=== PATIENT | male | born 1945 | race Caucasian/White ===

== ENCOUNTER 2019-05-05 01:22 | Inpatient (IN) | payer MEDICARE, MEDICAID ==
[2019-05-05] MEDS ORDERED: Sodium Chloride 0.9% 1,000 ML IV ONE ×2 (01:54→03:30)
[2019-05-05] MEDS ORDERED: cefTRIAXone 1 GM Vial IVPUSH ONE (02:10)
[2019-05-05 03:06] LABS: CHLORIDE,CL 106 mmol/L (98-107); SODIUM,NA 142 mmol/L (136-145)
[2019-05-05 03:07] LABS: ANION GAP 14.2 mmol/L (10-20)
[2019-05-05] MEDS ORDERED: Diltiazem 50 MG/10 ML SDV IVPUSH ONE (05:12)
--- NOTE | 2019-05-05 07:28 | EDM.PDOC ---
ED HPI GENERAL MEDICAL PROBLEM - General Chief Complaint: Fever Stated Complaint: Fever, recent diagnosis of UTI Time Seen by Provider: 05/05/19 01:54 Source of Information: Reports: Patient, Long-Term Records History Limitations: Reports: Other (Dementia) - History of Present Illness INITIAL COMMENTS - FREE TEXT/NARRATIVE: [place] with fever of 103.1 Was started on Bactrim DS today for UTI and has had one dose No N/V/D No cough No SOB Pt noted to be tachycardic upon arrival in ER with rate in 160's Pt has hx/o Afib and HTN per [facility] notes Pt with dementia Onset: Gradual Location: Reports: Generalized Associated Symptoms: Reports: Fever/Chills Treatments ANALYTICS DEVELOPER: Reports: Acetaminophen - Related Data Allergies Allergy/AdvReac Type Severity Reaction Status Date / Time No Known Drug Allergies Allergy Other Verified 05/05/19 03:29 Home Meds: Home Meds Divalproex Sodium [Depakote ER] 1,000 mg PO BEDTIME 09/10/14 [History] Furosemide [Lasix] 40 mg PO DAILY PRN 09/10/14 [History] Hydrocodone/Acetaminophen [[place] 5-325] 1 tab PO TID 09/10/14 [History] Levothyroxine 75 mcg PO ACBRK 09/10/14 [History] Memantine HCl [Namenda Xr] 14 mg PO DAILY 09/10/14 [History] OLANZapine [ZyPREXA] 5 mg PO DAILY 09/10/14 [History] Nitroglycerin [Nitrostat] 0.4 mg SL Q5M PRN 10/04/14 [History] Omeprazole [Prilosec] 20 mg PO DAILY 10/04/14 [History] Lisinopril 5 mg PO DAILY 10/18/17 [History] Cranberry Fruit Concentrate [Cranberry] 450 mg PO TID 10/19/17 [History] Cyanocobalamin (Vitamin B-12) [B-12] 1,000 mcg PO DAILY 10/19/17 [History] Nystatin 1 applic TOP ASDIRECTED PRN 10/19/17 [History] Sennosides/Docusate Sodium [Senna Plus Tablet] 2 tab PO DAILY 12/01/18 [History] Past Medical History HEENT History: Reports: Impaired Vision Other HEENT History: wears glasses, upper dentures Cardiovascular History: Reports: Hypertension, OK Other Cardiovascular History: MITRAL VALVE DISORDER. NSTEMI. PAROXYSMAL A- FIB. ANKLE EDEMA. LVH-LEFT VENTRICULAR HYPERTROPHY Respiratory History: Reports: COPD Other Respiratory History: OBSTRUCTIVE CHRONIC BRONCHITIS EXACERBATION Gastrointestinal History: Reports: Chronic Constipation, Chronic Diarrhea, GERD , GI Bleed Genitourinary History: Reports: Neurogenic Bladder Other Genitourinary History: neuromuscular dysfunction of the bladder Musculoskeletal History: Reports: Back Pain, Chronic Other Musculoskeletal History: MALAISE, GENERALIZED PAIN. LIPOMATOSIS, HAMMERTOE, FLAT FOOT, CORN OF FOOT, Neurological History: Reports: Alzheimers Disease, Headaches, Chronic Other Neuro History: DEMENTIA, MILD INTELLECTUAL DISABILITY Psychiatric History: Reports: Bipolar, Schizophrenia Other Psychiatric History: INSOMNIA. ALCOHOL DEPENDENCE IN REMISSION Endocrine/Metabolic History: Reports: Diabetes, Type II, Hypothyroidism, Obesity /BMI 30+ Other Endocrine/Metabolic History: IMPAIRED FASTING GLUCOSE Hematologic History: Reports: Anemia, Iron Deficiency Other Hematologic History: MACROCYTIC ANEMIA Other Immunologic History: H/O SEPSIS Oncologic (Cancer) History: Reports: Bladder Other Dermatologic History: DERMATITIS - Past Surgical History GI Surgical History: Reports: Appendectomy Social & Family History - Family History Family Medical History: Noncontributory - Tobacco Use Smoking Status *Q: Unknown Ever Smoked - Caffeine Use Caffeine Use: Reports: None ED ROS GENERAL - Review of Systems Review Of Systems: See Below Constitutional: Reports: Fever HEENT: Reports: No Symptoms Respiratory: Reports: No Symptoms Cardiovascular: Reports: No Symptoms GI/Abdominal: Reports: No Symptoms : Reports: Incontinence Skin: Reports: No Symptoms ED EXAM, SEPSIS - Physical Exam Exam: See Below Exam Limited By: Other (Dementia) General Appearance: No Apparent Distress Throat/Mouth: Normal Oropharynx Neck: Supple Respiratory/Chest: Lungs Clear Cardiovascular: Regular Rate, Rhythm GI/Abdominal Exam: Soft, Non-Tender Extremities: Pedal Edema Skin: Warm, Dry Course - Vital Signs Last Recorded V/S: Last Vital Signs Temp 36.6 C 05/05/19 05:40 Pulse 152 H 05/05/19 03:40 Resp 20 05/05/19 06:39 BP 121/55 L 05/05/19 06:39 Pulse Ox 95 05/05/19 06:39 - Orders/Labs/Meds Orders: Active Orders 24 hr Category Date Time Status EKG 12 Lead [EKG Documentation Completion] [RC] ROUTINE Care 05/05/19 03:00 Active Chest 1V Frontal [CR] Stat Exams 05/05/19 07:18 Ordered CULTURE BLOOD [BC] Stat Lab 05/05/19 02:35 Results CULTURE BLOOD [BC] Stat Lab 05/05/19 02:41 Received CULTURE URINE [RM] Stat Lab 05/05/19 02:50 Received Blood Culture x2 Reflex Set [OM.PC] Stat Oth 05/05/19 01:55 Ordered Labs: Laboratory Tests 05/05/19 05/05/19 05/05/19 Range/Units 02:35 02:35 02:41 WBC 27.5 H* (4.0-10.0) x10^3/uL RBC 3.89 L (4.5-6.0) x10^6/uL Hgb 13.3 L (14.0-18.0) g/dL Hct 39.1 L (40.0-52.0) % MCV 100.5 H D (78.0-93.0) fL MCH 34.2 H (26.0-32.0) pg MCHC 34.0 (32.0-36.0) g/dL RDW Coeff of January 12.3 (10.0-15.0) % Plt Count 154 (130-400) x10^3/uL Add Manual Diff Yes Neutrophils % (Manual) 78 (50-80) % Band Neutrophils % 6 (0-6) % Lymphocytes % (Manual) 3 L (25-50) % Monocytes % (Manual) 11 (2-11) % Metamyelocytes % 2 H (0) % Vacuolated Monocytes Rare Platelet Estimate Adequate Macrocytosis 1+ slight H Stomatocytes 2+ moderate H Rouleaux 1+ slight H Sodium 142 (136-145) mmol/L Potassium 4.2 (3.5-5.1) mmol/L Chloride 106 (98-107) mmol/L Carbon Dioxide 26 (21-32) mmol/L Anion Gap 14.2 (10-20) mmol/L BUN 39 H (7-18) mg/dL Creatinine 2.5 H (0.70-1.30) mg/dL Est Cr Clr Drug Dosing TNP Estimated GFR (MDRD) 25 Glucose 115 H (74-106) mg/dL Lactic Acid 1.2 (0.4-2.0) mmol/L Calcium 8.6 (8.5-10.1) mg/dL Corrected Calcium 9.64 (8.5-10.1) mg/dL Total Bilirubin 0.5 (0.2-1.0) mg/dL AST 217 H (15-37) U/L ALT 100 H (16-63) U/L Alkaline Phosphatase 40 L (46-116) U/L Total Protein 6.5 (6.4-8.2) g/dL Albumin 2.7 L (3.4-5.0) g/dL Globulin 3.8 Albumin/Globulin Ratio 0.71 Urine Color (YELLOW) Urine Appearance (CLEAR) Urine pH (5.0-8.0) Ur Specific [place] Urine Protein (NEGATIVE) mg/dL Urine Glucose (UA) (NEGATIVE) mg/dL Urine Ketones (NEGATIVE) mg/dL Urine Occult Blood (NEGATIVE) Urine Nitrite (NEGATIVE) Urine Bilirubin (NEGATIVE) Urine Urobilinogen (0.2) EU/dL Ur Leukocyte Esterase (NEGATIVE) Urine RBC (NOT SEEN) /HPF Urine WBC (NOT SEEN) /HPF Ur Squamous Epith Cells (NEGATIVE) /HPF Urine Bacteria (NEGATIVE) /HPF Urine Mucus (NEGATIVE) /LPF 05/05/19 Range/Units 02:50 WBC (4.0-10.0) x10^3/uL RBC (4.5-6.0) x10^6/uL Hgb (14.0-18.0) g/dL Hct (40.0-52.0) % MCV (78.0-93.0) fL MCH (26.0-32.0) pg MCHC (32.0-36.0) g/dL RDW Coeff of January (10.0-15.0) % Plt Count (130-400) x10^3/uL Add Manual Diff Neutrophils % (Manual) (50-80) % Band Neutrophils % (0-6) % Lymphocytes % (Manual) (25-50) % Monocytes % (Manual) (2-11) % Metamyelocytes % (0) % Vacuolated Monocytes Platelet Estimate Macrocytosis Stomatocytes Rouleaux Sodium (136-145) mmol/L Potassium (3.5-5.1) mmol/L Chloride (98-107) mmol/L Carbon Dioxide (21-32) mmol/L Anion Gap (10-20) mmol/L BUN (7-18) mg/dL Creatinine (0.70-1.30) mg/dL Est Cr Clr Drug Dosing Estimated GFR (MDRD) Glucose (74-106) mg/dL Lactic Acid (0.4-2.0) mmol/L Calcium (8.5-10.1) mg/dL Corrected Calcium (8.5-10.1) mg/dL Total Bilirubin (0.2-1.0) mg/dL AST (15-37) U/L ALT (16-63) U/L Alkaline Phosphatase (46-116) U/L Total Protein (6.4-8.2) g/dL Albumin (3.4-5.0) g/dL Globulin Albumin/Globulin Ratio Urine Color Yellow (YELLOW) Urine Appearance Clear (CLEAR) Urine pH 6.0 (5.0-8.0) Ur Specific [place] 1.010 Urine Protein 30 H (NEGATIVE) mg/dL Urine Glucose (UA) Negative (NEGATIVE) mg/dL Urine Ketones Trace H (NEGATIVE) mg/dL Urine Occult Blood Moderate H (NEGATIVE) Urine Nitrite Negative (NEGATIVE) Urine Bilirubin Negative (NEGATIVE) Urine Urobilinogen 0.2 (0.2) EU/dL Ur Leukocyte Esterase Trace H (NEGATIVE) Urine RBC 5-10 H (NOT SEEN) /HPF Urine WBC 5-10 H (NOT SEEN) /HPF Ur Squamous Epith Cells Not seen (NEGATIVE) /HPF Urine Bacteria Rare (NEGATIVE) /HPF Urine Mucus Not seen (NEGATIVE) /LPF Meds: Medications Discontinued Medications Generic Name Dose Route Start Last Admin Trade Name Araceli PRN Reason Stop Dose Admin Ceftriaxone Sodium 1 gm 05/05/19 02:10 05/05/19 02:40 Rocephin IVPUSH 05/05/19 02:11 1 gm STAT ONE Administration Diltiazem HCl 25 mg 05/05/19 05:12 05/05/19 05:20 Cardizem IVPUSH 05/05/19 05:13 25 mg ONETIME ONE Administration Sodium Chloride 1,000 mls @ 1,000 mls/hr 05/05/19 01:54 05/05/19 02:06 Normal Saline IV 05/05/19 02:53 1,000 mls/hr ONETIME ONE Administration Sodium Chloride 1,000 mls @ 999 mls/hr 05/05/19 03:30 05/05/19 03:30 Normal Saline IV 05/05/19 04:30 999 mls/hr ONETIME ONE Administration - Re-Assessments/Exams Free Text/Narrative Re-Assessment/Exam: 05/05/19 07:29 Pt given Tylenol prior to transfer Fever now decreased to 98.8 Oxygen sats 99 % on RA HR remained in the 150's and pt given IVF X 2 L Pt remains tachycardic EKG shows Afib/Aflutter Pt given Cardizem 25 mg IV and HR decreased to 105 Pt BP 105/62 at that time HR has now increased back to 150's BP 121/51 Pt remains in Afib D/W Dr Bonner Will admit Departure - Departure Time of Disposition: 07:45 Disposition: Admitted As Inpatient 64 Clinical Impression: UTI (urinary tract infection) Qualifiers: Urinary tract infection type: site unspecified Hematuria presence: without hematuria Qualified Code(s): N39.0 - Urinary tract infection, site not specified - Discharge Information *PRESCRIPTION DRUG MONITORING PROGRAM REVIEWED*: Not Applicable *COPY OF PRESCRIPTION DRUG MONITORING REPORT IN PATIENT SCOTT: Not Applicable Referrals: PCP,Unobtain [Primary Care Provider] - - My Orders Last 24 Hours: My Active Orders 05/05/19 01:55 Blood Culture x2 Reflex Set [OM.PC] Stat 05/05/19 02:35 CULTURE BLOOD [BC] Stat 05/05/19 02:41 CULTURE BLOOD [BC] Stat 05/05/19 02:50 CULTURE URINE [RM] Stat 05/05/19 03:00 EKG 12 Lead [EKG Documentation Completion] [RC] ROUTINE 05/05/19 07:18 Chest 1V Frontal [CR] Stat - Assessment/Plan Last 24 Hours: My Active Orders 05/05/19 01:55 Blood Culture x2 Reflex Set [OM.PC] Stat 05/05/19 02:35 CULTURE BLOOD [BC] Stat 05/05/19 02:41 CULTURE BLOOD [BC] Stat 05/05/19 02:50 CULTURE URINE [RM] Stat 05/05/19 03:00 EKG 12 Lead [EKG Documentation Completion] [RC] ROUTINE 05/05/19 07:18 Chest 1V Frontal [CR] Stat
--- NOTE | 2019-05-05 08:25 | CR ---
[id number] RAD/RAD Chest PA or AP 1V EXAM: FRONTAL CHEST INDICATION: Fever. COMPARISON: October 18, 2017. DISCUSSION: Evaluation mildly limited by body habitus and hypoinflation. No infiltrates are identified. Heart is at upper limits normal for size without evidence of congestive heart failure. IMPRESSION: 1. No acute findings. Pravin Kimble MD 05/05/19 0824 Thank you for allowing us to participate in the care of your patient.
[2019-05-05] MEDS ORDERED: Nitroglycerin 0.4 MG Tab.SL SL PRN (08:38)
[2019-05-05] MEDS ORDERED: Bisacodyl 10 MG Supp RECTAL PRN (08:38)
[2019-05-05] MEDS ORDERED: Loperamide 2 MG Cap PO PRN (08:38)
[2019-05-05] MEDS ORDERED: Sodium Chloride 0.9% 500 ML IV ONE (08:50)
[2019-05-05] MEDS ORDERED: Lisinopril 5 MG Tab PO SCH (09:30)
[2019-05-05] MEDS: Sodium Chloride 0.9% 1,000 ML IV SCH ×3 (09:52→18:57)
[2019-05-05] MEDS: Cyanocobalamin (Vitamin B12) 1,000 MCG Tab PO SCH (09:53)
[2019-05-05] MEDS: Levothyroxine 75 MCG Tab PO SCH (09:53)
[2019-05-05] MEDS: OLANZapine 5 MG Tab PO SCH (09:53)
[2019-05-05] MEDS: Memantine 10 MG Tab PO SCH ×2 (09:53→19:49)
[2019-05-05] MEDS: Fluconazole 100 MG Tab PO SCH (09:53)
[2019-05-05] MEDS: Magnesium Oxide 400 MG Tab PO SCH (09:53)
[2019-05-05] MEDS: Metoprolol Tartrate 5 MG/5 ML SDV IVPUSH SCH ×3 (09:55→15:51)
[2019-05-05] MEDS: Cranberry 500 MG Cap PO SCH ×3 (12:16→19:49)
[2019-05-05] MEDS: Acetaminophen/HYDROcodone 325-5 MG Tab PO SCH ×3 (12:16→19:49)
[2019-05-05] MEDS: Acetaminophen 325 MG Tab PO PRN ×2 (12:16→15:58)
--- NOTE | 2019-05-05 12:55 | PCM.SN ---
- Free Text/Narrative Note: pt status is becoming more somnolent , his pulse has gone up to 160's and BP upper 90's systolic. He is DNR/DNI so won't make transfer call, but will consult Dr Lorie Mehta, since pt has already recieved fluid boluses x 2 as well as IV cardizem and IV lopressor x 2 dose. His renal function is Cr 2.5 and he had urospesis. configuration specialist will be updated. He did have A fib w RVR in 2013. He may from current health issues. A BMP is pending at this time.
--- NOTE | 2019-05-05 13:00 | PCM.SN ---
- Free Text/Narrative Note: Spoke with guardian and she agreed with keeping him hiere. Ok with consult with Dr Lorie Mehta, She was informed that he may from his current illness.
[2019-05-05] MEDS ORDERED: Adenosine 6 MG/2 ML SDV IVPUSH ONE (13:03)
--- NOTE | 2019-05-05 13:32 | HP ---
CHIEF COMPLAINT: Febrile with rapid pulse. HISTORY OF PRESENT ILLNESS: The patient is a 73-year-old resident of [facility], patient of Dr. Atkinson, who had been treated for an abnormal urine by phone call from the clinic yesterday with Bactrim DS. He received 1 dose, and during the night, he had a fever that went up to 103 as well as a rapid pulse, so he was brought over to the emergency room at 2 a.m. The patient was seen by Jaden Zamora. The patient had noted a rapid pulse. He was given first some IV fluids for resuscitation. However, he was given some Cardizem to also help, it had shown sinus tachycardia, not irregular. The patient has dementia, is not able to contribute to his story to note it is noted at the [facility]. His code level status is code level 4. The patient himself denies coughing and he has some swollen red lumps on his forearms, which I am not certain if they are longstanding, old versus new. MEDICATIONS: His medications that he is currently on are Bactrim DS 1 pill twice a day, just started; bisacodyl suppository 5 mg by mouth p.r.n. constipation; bisacodyl rectal suppository 10 mg as needed; cranberry capsule 425 mg 1 pill 3 times a day; Depakote extended release 500 mg get 3 pills one time a day; hydrocodone/acetaminophen 5/325 one pill 3 times daily; Imodium AD 2 mg p.r.n. diarrhea, maximum of 4 capsules in 24 hours; levothyroxine 75 mcg 1 pill daily; lisinopril 5 mg 1 pill daily; Namenda extended release 28 mg 1 pill daily; Nitrostat 0.4 sublingual q.5 minutes x3 p.r.n. chest pain; nystatin powder 1000 units/g apply to groin b.i.d.; nystatin powder apply to groin p.r.n. rash; Senna Plus 2 pills 2 times a day for constipation; vitamin B12 1000 mcg 1 pill daily; Zantac 150 mg 1 pill daily; Zyprexa 10 mg 1 pill by mouth daily. ALLERGIES: None known. PAST MEDICAL HISTORY: The patient has bipolar disorder, manic phases, bladder cancer, chronic headaches, constipation, COPD, dementia, diarrhea, flat foot, hammertoe, hypertension, hypothyroidism, impaired fasting glucose, lower GI bleeding, left ventricular hypertrophy, macrocytic anemia with intellectual disability, morbid obesity, neurogenic bladder, non-STEMI in the past, paroxysmal atrial fib, reflex esophagitis. The patient has had cardiac workup in 2013 with a Persantine stress test that came back negative. He has had chronic back pain. He had a colonoscopy on 12/02/2018, which was negative. PAST SURGICAL HISTORY: He has had an appendectomy. FAMILY MEDICAL HISTORY: His brother and sister had normal health. SOCIAL HISTORY: The patient is single. He has a guardian by the name of Edda Henson, whose number is [phone]. The patient used to smoke 2 packs of cigarettes per day. He quit 12 years ago. Alcohol use none. The patient has been at the [facility] for several years. He goes by [employer]. 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 He has been in the [facility] since 2007 as well as in the [facility]. REVIEW OF SYSTEMS: The patient is not able to contribute any comments due to his dementia, but he denies coughing. PHYSICAL EXAMINATION: Vital Signs: When he initially presented to the emergency room were temperature is 38.2, pulse 158, blood pressure is 130/64, respiratory rate is 18, saturations are 93%. By the time the patient was admitted to the floor, his temperature was 36.9, pulse was 164, blood pressure is 123/60, respiratory rate is 20, saturations are 96%. HEENT: The patient's mucous membranes are extremely dry with some thrush present on the top of his mouth. Pupils equal and reactive to light. Skin: Somewhat dry, tented on his left forearm. He does have a firm mass that is about 3 cm in size, which does have some erythema associated with it. He may have a lipoma on his right forearm. Heart: Tachycardic. Lungs: Have diminished breath sounds on bases. I do not appreciate any crackles or wheezes. Abdomen: Obese, soft, nontender. No hepatosplenomegaly. Extremities: Lower extremities have trace edema. Neurologic: The patient moves all extremities. He is developmentally delayed. Psychiatric: He has a history of bipolar disorder. LABORATORY DATA: Came back showing his white blood cell count of 27.5, hemoglobin 13.3, platelets 154 with 78 segs, 3 lymphocytes, 2 metamyelocytes. Sodium 142, potassium 4.2, creatinine is 2.5, BUN 39, glucose 115, GFR is 25, lactic acid 1.2, calcium 8.6. Total bilirubin 0.5, AST 217, ALT 100, alkaline phosphatase 40, albumin 2.7. Urinalysis that was obtained showed specific gravity of 1.010, protein 30, trace ketones, moderate blood, trace leukocyte esterase, 5 to 10 red blood cells, 5 to 10 white blood cells, rare bacteria. CXR normal EKG sinus tachycardia. IMPRESSION: 1. Systemic inflammatory response syndrome most likely related to urinary tract infection. 2. Urinary tract infection. 3. Tachycardia, unclear etiology. 4. Dehydration, moderate. 5. Acute kidney injury. 6. Elevation of liver function tests. 7. Thrush in his mouth. 8. Bipolar disorder. 9. Chronic dementia with mental disability. 10.History of bladder cancer. PLAN: The patient will be admitted to acute care. I did visit with Edda Easley, his power of file clerk, at approximately 8:10, and she would like to have infections treated, IV fluids given. She does not want him to be resuscitated such as CPR or placed on the ventilator. The patient had been given Rocephin 1 g IV in the emergency room. We will continue Rocephin for right now and we will also continue with rate controlling medications of Cardizem. We will need to reassess his electrolytes to note his baseline creatinine noted from last year had been about 1.5, so there is definitely a change that is going on. Dr. Atkinson to assume his care once he is available. I will continue to care for the patient today and tomorrow. Due to severity of illlness, patient could from current health issues. His code level status is upgraded to DNI/DNR. We will treat infections and give IV fluids in general room. GM05/05/2019 08:31:46 MODL: 05/05/2019 13:27:10 /[id number] PILY
[2019-05-05 13:54] LABS: ANION GAP 15.6 mmol/L (10-20)
[2019-05-05] MEDS ORDERED: Metoprolol Tartrate 5 MG/5 ML SDV IVPUSH PRN (17:07)
[2019-05-05] MEDS ORDERED: Digoxin 500 MCG/2 ML Amp IVPUSH ONE ×2 (17:30→21:20)
--- NOTE | 2019-05-05 17:34 | PCM.SN ---
- Free Text/Narrative Note: EKG reviewed and patient in a. fib with RVR did respond minimally to IV lopressor 2.5 so plan 5 mg Q 4 hrs prn for HR over 140 and BP above 100 if BP under 100 than 1 dose of IV dig ordered will reasses in AM but conservative care recommended based on patients overall condition and underlying dementia. Continue telemetry and fluids and other treatments for sepsis. Full consult note will be dictated. I would hold off on any significant anticoagulation at this point other than DVT prophylaxis.
[2019-05-05] MEDS ORDERED: Digoxin 500 MCG/2 ML Amp IVPUSH PRN (17:51)
[2019-05-05] MEDS: Miconazole 2% Top Powder 45 GM Container TOP SCH (19:44)
[2019-05-05] MEDS: Divalproex Sodium 500 MG Tab.ER PO SCH (19:44)
[2019-05-05] MEDS: Heparin Sodium 5,000 Units/ML Vial SUBCUT SCH (19:45)
[2019-05-05] MEDS: cefTRIAXone 1 GM Vial IVPUSH SCH (19:47)
--- NOTE | 2019-05-05 23:15 | PCM.HP ---
H&P History of Present Illness - General Date of Service: 05/05/19 Admit Problem/Dx: Admission Diagnosis/Problem Admission Diagnosis/Problem Fever Source of Information: EMS, Old Records, Provider, RN - History of Present Illness Initial Comments - Free Text/Narative: 73 yo dx with UTI yesterday got one dose of bactrim in the ER overnight due to fever and tachycardia HR 160 in A. fib responded to 25 mg of Cardizem but then was hypotensive. Lactic acid normal but then increased I was consulted due to tachycardia. EKG was read as EKG so 5 mg of Adenosine given with no result but 2.5 of Lopressor given x 2 and last dose helped heart rate to improve to 120- 140. Patient is now lethargic not answering questions due to underlying dementia and bipolar is not a candidate for aggressive care per attending discussion with his guardian. He did get his lisinopril this AM. Clt still pending from the clinic he is on IV rocephin. Fever is better. He is only requiring 2 L of oxygen now but sats in mid 90s no hx of CHF has normal EF in 2013 65 % when he last had a. fib in 2013. He is not on anticoagulation. Pet scan at that time read as essentially normal he does have mild to moderate MR. He got over 2L of fluid and now is getting a sewell placed with good return of urine so far. Cr up to over 2 and baseline was around 1 last fall. - Related Data Allergies/Adverse Reactions: Allergies Allergy/AdvReac Type Severity Reaction Status Date / Time No Known Drug Allergies Allergy Other Verified 05/05/19 03:29 Home Medications: Home Meds Divalproex Sodium [Depakote ER] 1,500 mg PO BEDTIME 09/10/14 [History] Hydrocodone/Acetaminophen [[place] 5-325] 1 tab PO TID 09/10/14 [History] Levothyroxine 75 mcg PO ACBRK 09/10/14 [History] Memantine HCl [Namenda Xr] 28 mg PO DAILY 09/10/14 [History] OLANZapine [ZyPREXA] 10 mg PO DAILY 09/10/14 [History] Nitroglycerin [Nitrostat] 0.4 mg SL Q5M PRN 10/04/14 [History] Lisinopril 5 mg PO DAILY 10/18/17 [History] Cranberry Fruit Concentrate [Cranberry] 425 mg PO TID 10/19/17 [History] Cyanocobalamin (Vitamin B-12) [B-12] 1,000 mcg PO DAILY 10/19/17 [History] Nystatin 1 applic TOP BID 10/19/17 [History] Sennosides/Docusate Sodium [Senna Plus Tablet] 2 tab PO DAILY 12/01/18 [History] Bisacodyl 5 mg PO DAILY PRN 05/05/19 [History] Bisacodyl 10 mg RC DAILY PRN 05/05/19 [History] Loperamide HCl [Imodium A-D] 2 mg PO ASDIRECTED PRN 05/05/19 [History] Sulfamethoxazole/Trimethoprim [Bactrim Ds Tablet] 1 tab PO BID 05/05/19 [History ] Past Medical History HEENT History: Reports: Impaired Vision Other HEENT History: wears glasses, upper dentures Cardiovascular History: Reports: Hypertension, [place] Other Cardiovascular History: MITRAL VALVE DISORDER. NSTEMI. PAROXYSMAL A- FIB. ANKLE EDEMA. LVH-LEFT VENTRICULAR HYPERTROPHY Respiratory History: Reports: COPD Other Respiratory History: OBSTRUCTIVE CHRONIC BRONCHITIS EXACERBATION Gastrointestinal History: Reports: Chronic Constipation, Chronic Diarrhea, GERD , GI Bleed Genitourinary History: Reports: Neurogenic Bladder Other Genitourinary History: neuromuscular dysfunction of the bladder Musculoskeletal History: Reports: Back Pain, Chronic Other Musculoskeletal History: MALAISE, GENERALIZED PAIN. LIPOMATOSIS, [place], FLAT FOOT, CORN OF FOOT, Neurological History: Reports: Alzheimers Disease, Headaches, Chronic Other Neuro History: DEMENTIA, MILD INTELLECTUAL DISABILITY Psychiatric History: Reports: Bipolar, Schizophrenia Other Psychiatric History: INSOMNIA. ALCOHOL DEPENDENCE IN REMISSION Endocrine/Metabolic History: Reports: Diabetes, Type II, Hypothyroidism, Obesity /BMI 30+ Other Endocrine/Metabolic History: IMPAIRED FASTING GLUCOSE Hematologic History: Reports: Anemia, Iron Deficiency Other Hematologic History: MACROCYTIC ANEMIA Other Immunologic History: H/O SEPSIS Oncologic (Cancer) History: Reports: Bladder Other Dermatologic History: DERMATITIS - Past Surgical History GI Surgical History: Reports: Appendectomy Social & Family History - Family History Family Medical History: Noncontributory - Tobacco Use Smoking Status *Q: Never Smoker Second Hand Smoke Exposure: No - Caffeine Use Caffeine Use: Reports: Coffee - Recreational Drug Use Recreational Drug Use: No H&P Review of Systems - Review of Systems: Review Of Systems: Unable To Obtain Exam - Exam Exam: See Below - Vital Signs Vital Signs: Last Vital Signs Temp 99.9 F 05/05/19 22:00 Pulse 137 H 05/05/19 22:00 Resp 18 05/05/19 22:00 BP 98/68 05/05/19 22:00 Pulse Ox 95 05/05/19 22:00 Weight: 109.769 kg - Exam Quality Assessment: Supplemental Oxygen General: Lethargic (only able to answer "ya" when I used painful stimuli ) HEENT: Conjunctiva Clear Neck: Supple, Trachea Midline. No: JVD Lungs: Clear to Auscultation, Normal Respiratory Effort Cardiovascular: Irregular Rhythm, Tachycardia GI/Abdominal Exam: Normal Bowel Sounds, Soft, Non-Tender, No Organomegaly Extremities: Normal Inspection, No Pedal Edema - Patient Data Lab Results Last 24 hrs: Laboratory Results - last 24 hr 05/05/19 05/05/19 05/05/19 Range/Units 02:35 02:35 02:41 WBC 27.5 H* (4.0-10.0) x10^3/uL RBC 3.89 L (4.5-6.0) x10^6/uL Hgb 13.3 L (14.0-18.0) g/dL Hct 39.1 L (40.0-52.0) % MCV 100.5 H D (78.0-93.0) fL MCH 34.2 H (26.0-32.0) pg MCHC 34.0 (32.0-36.0) g/dL RDW Coeff of January 12.3 (10.0-15.0) % Plt Count 154 (130-400) x10^3/uL Add Manual Diff Yes Neutrophils % (Manual) 78 (50-80) % Band Neutrophils % 6 (0-6) % Lymphocytes % (Manual) 3 L (25-50) % Monocytes % (Manual) 11 (2-11) % Metamyelocytes % 2 H (0) % Vacuolated Monocytes Rare Platelet Estimate Adequate Macrocytosis 1+ slight H Stomatocytes 2+ moderate H Rouleaux 1+ slight H Sodium 142 (136-145) mmol/L Potassium 4.2 (3.5-5.1) mmol/L Chloride 106 (98-107) mmol/L Carbon Dioxide 26 (21-32) mmol/L Anion Gap 14.2 (10-20) mmol/L BUN 39 H (7-18) mg/dL Creatinine 2.5 H (0.70-1.30) mg/dL Est Cr Clr Drug Dosing TNP Estimated GFR (MDRD) 25 Glucose 115 H (74-106) mg/dL Lactic Acid 1.2 (0.4-2.0) mmol/L Calcium 8.6 (8.5-10.1) mg/dL Corrected Calcium 9.64 (8.5-10.1) mg/dL Magnesium (1.8-2.4) mg/dL Total Bilirubin 0.5 (0.2-1.0) mg/dL AST 217 H (15-37) U/L ALT 100 H (16-63) U/L Alkaline Phosphatase 40 L (46-116) U/L Troponin I (<=0.056) ng/mL C-Reactive Protein (<=0.9) mg/dL NT-Pro-B Natriuret Pep (<=450) pg/mL Total Protein 6.5 (6.4-8.2) g/dL Albumin 2.7 L (3.4-5.0) g/dL Globulin 3.8 Albumin/Globulin Ratio 0.71 Urine Color (YELLOW) Urine Appearance (CLEAR) Urine pH (5.0-8.0) Ur Specific [place] Urine Protein (NEGATIVE) mg/dL Urine Glucose (UA) (NEGATIVE) mg/dL Urine Ketones (NEGATIVE) mg/dL Urine Occult Blood (NEGATIVE) Urine Nitrite (NEGATIVE) Urine Bilirubin (NEGATIVE) Urine Urobilinogen (0.2) EU/dL Ur Leukocyte Esterase (NEGATIVE) Urine RBC (NOT SEEN) /HPF Urine WBC (NOT SEEN) /HPF Ur Squamous Epith Cells (NEGATIVE) /HPF Urine Bacteria (NEGATIVE) /HPF Urine Mucus (NEGATIVE) /LPF 05/05/19 05/05/19 05/05/19 Range/Units 02:50 09:00 09:00 WBC (4.0-10.0) x10^3/uL RBC (4.5-6.0) x10^6/uL Hgb (14.0-18.0) g/dL Hct (40.0-52.0) % MCV (78.0-93.0) fL MCH (26.0-32.0) pg MCHC (32.0-36.0) g/dL RDW Coeff of January (10.0-15.0) % Plt Count (130-400) x10^3/uL Add Manual Diff Neutrophils % (Manual) (50-80) % Band Neutrophils % (0-6) % Lymphocytes % (Manual) (25-50) % Monocytes % (Manual) (2-11) % Metamyelocytes % (0) % Vacuolated Monocytes Platelet Estimate Macrocytosis Stomatocytes Rouleaux Sodium (136-145) mmol/L Potassium (3.5-5.1) mmol/L Chloride (98-107) mmol/L Carbon Dioxide (21-32) mmol/L Anion Gap (10-20) mmol/L BUN (7-18) mg/dL Creatinine (0.70-1.30) mg/dL Est Cr Clr Drug Dosing Estimated GFR (MDRD) Glucose (74-106) mg/dL Lactic Acid 2.5 H* (0.4-2.0) mmol/L Calcium (8.5-10.1) mg/dL Corrected Calcium (8.5-10.1) mg/dL Magnesium 1.7 L (1.8-2.4) mg/dL Total Bilirubin (0.2-1.0) mg/dL AST (15-37) U/L ALT (16-63) U/L Alkaline Phosphatase (46-116) U/L Troponin I (<=0.056) ng/mL C-Reactive Protein (<=0.9) mg/dL NT-Pro-B Natriuret Pep (<=450) pg/mL Total Protein (6.4-8.2) g/dL Albumin (3.4-5.0) g/dL Globulin Albumin/Globulin Ratio Urine Color Yellow (YELLOW) Urine Appearance Clear (CLEAR) Urine pH 6.0 (5.0-8.0) Ur Specific [place] 1.010 Urine Protein 30 H (NEGATIVE) mg/dL Urine Glucose (UA) Negative (NEGATIVE) mg/dL Urine Ketones Trace H (NEGATIVE) mg/dL Urine Occult Blood Moderate H (NEGATIVE) Urine Nitrite Negative (NEGATIVE) Urine Bilirubin Negative (NEGATIVE) Urine Urobilinogen 0.2 (0.2) EU/dL Ur Leukocyte Esterase Trace H (NEGATIVE) Urine RBC 5-10 H (NOT SEEN) /HPF Urine WBC 5-10 H (NOT SEEN) /HPF Ur Squamous Epith Cells Not seen (NEGATIVE) /HPF Urine Bacteria Rare (NEGATIVE) /HPF Urine Mucus Not seen (NEGATIVE) /LPF 05/05/19 05/05/19 Range/Units 09:00 13:10 WBC (4.0-10.0) x10^3/uL RBC (4.5-6.0) x10^6/uL Hgb (14.0-18.0) g/dL Hct (40.0-52.0) % MCV (78.0-93.0) fL MCH (26.0-32.0) pg MCHC (32.0-36.0) g/dL RDW Coeff of January (10.0-15.0) % Plt Count (130-400) x10^3/uL Add Manual Diff Neutrophils % (Manual) (50-80) % Band Neutrophils % (0-6) % Lymphocytes % (Manual) (25-50) % Monocytes % (Manual) (2-11) % Metamyelocytes % (0) % Vacuolated Monocytes Platelet Estimate Macrocytosis Stomatocytes Rouleaux Sodium 144 (136-145) mmol/L Potassium 4.6 (3.5-5.1) mmol/L Chloride 109 H (98-107) mmol/L Carbon Dioxide 24 (21-32) mmol/L Anion Gap 15.6 (10-20) mmol/L BUN 36 H (7-18) mg/dL Creatinine 2.6 H (0.70-1.30) mg/dL Est Cr Clr Drug Dosing 26.15 Estimated GFR (MDRD) 24 Glucose 111 H (74-106) mg/dL Lactic Acid (0.4-2.0) mmol/L Calcium 8.2 L (8.5-10.1) mg/dL Corrected Calcium (8.5-10.1) mg/dL Magnesium (1.8-2.4) mg/dL Total Bilirubin (0.2-1.0) mg/dL AST (15-37) U/L ALT (16-63) U/L Alkaline Phosphatase (46-116) U/L Troponin I 0.151 H* 0.141 H* (<=0.056) ng/mL C-Reactive Protein 21.1 H (<=0.9) mg/dL NT-Pro-B Natriuret Pep 42931 H (<=450) pg/mL Total Protein (6.4-8.2) g/dL Albumin (3.4-5.0) g/dL Globulin Albumin/Globulin Ratio Urine Color (YELLOW) Urine Appearance (CLEAR) Urine pH (5.0-8.0) Ur Specific [place] Urine Protein (NEGATIVE) mg/dL Urine Glucose (UA) (NEGATIVE) mg/dL Urine Ketones (NEGATIVE) mg/dL Urine Occult Blood (NEGATIVE) Urine Nitrite (NEGATIVE) Urine Bilirubin (NEGATIVE) Urine Urobilinogen (0.2) EU/dL Ur Leukocyte Esterase (NEGATIVE) Urine RBC (NOT SEEN) /HPF Urine WBC (NOT SEEN) /HPF Ur Squamous Epith Cells (NEGATIVE) /HPF Urine Bacteria (NEGATIVE) /HPF Urine Mucus (NEGATIVE) /LPF Result Diagrams: 05/05/19 02:35 05/05/19 13:10 Damir Results Last 24 hrs: Microbiology 05/05/19 02:35 Anaerobic Blood Culture - Final Blood - Venous - Problem List (1) Atrial fibrillation SNOMED Code(s): 66901352 ICD Code: I48.91 - UNSPECIFIED ATRIAL FIBRILLATION Status: Acute Priority : High Current Visit: Yes Problem Details: with RVR Qualifiers: Atrial fibrillation type: paroxysmal Qualified Code(s): I48.0 - Paroxysmal atrial fibrillation Problem List Initiated/Reviewed/Updated: Yes Orders Last 24hrs: Active Orders 24 hr Category Date Time Status Patient Status [ADT] Routine ADT 05/05/19 08:33 Active Cardiac Monitoring [RC] 06,10,14,18,22,02 Care 05/05/19 08:36 Active Communication Order [RC] PER UNIT ROUTINE Care 05/05/19 21:21 Active EKG 12 Lead [EKG Documentation Completion] [RC] ROUTINE Care 05/05/19 12:47 Active EKG Documentation Completion [RC] ROUTINE Care 05/06/19 08:00 Active EKG Documentation Completion [RC] ROUTINE Care 05/06/19 08:00 Active Height and Weight [RC] DAILY Care 05/05/19 08:33 Active Insert [place]ell Catheter [Insert Urinary Catheter] [OM.PC] Care 05/05/19 17:00 Ordered Q24H Intake and Output [RC] 06,18 Care 05/05/19 08:36 Active Notify Provider Consults [RC] .PRN Care 05/05/19 12:49 Active Oxygen Therapy [RC] 08,20 Care 05/05/19 08:33 Active Up to Chair [RC] 08,20 Care 05/05/19 08:33 Active Urinary Catheter Assessment [RC] 08,20 Care 05/05/19 16:51 Active VTE/DVT Education [RC] 08,20 Care 05/05/19 08:33 Active Vital Signs [RC] 06,10,14,18,22,02 Care 05/05/19 08:33 Active Consult to Physician [CONS] Urgent Cons 05/05/19 12:48 Ordered PT Evaluation and Treatment [CONS] Routine Cons 05/05/19 08:33 Active Regular Diet [DIET] Diet 05/05/19 Breakfast Active CBC WITH MANUAL DIFF [HEME] Routine Lab 05/06/19 05:00 Ordered COMPREHENSIVE METABOLIC PN,CMP [CHEM] Routine Lab 05/06/19 05:00 Ordered CRP [C-REACTIVE PROTEIN] [CHEM] Routine Lab 05/06/19 05:00 Ordered CULTURE BLOOD [BC] Stat Lab 05/05/19 02:35 Results CULTURE BLOOD [BC] Stat Lab 05/05/19 02:41 Received CULTURE MRSA SURVEY [RM] Routine Lab 05/05/19 08:25 Received CULTURE URINE [RM] Stat Lab 05/05/19 02:50 Received LACTIC ACID [CHEM] Routine Lab 05/06/19 05:00 Ordered MAGNESIUM [CHEM] Routine Lab 05/06/19 05:00 Ordered PRO B-TYPE NATRIUR PEPT,BNPPRO [CHEM] Routine Lab 05/06/19 05:00 Ordered TROPONIN I [CHEM] Routine Lab 05/06/19 05:00 Ordered Acetaminophen [Tylenol] Med 05/05/19 10:27 Active 650 mg PO Q4H PRN Acetaminophen/HYDROcodone [[place] 325-5 MG] Med 05/05/19 12:00 Active 1 tab PO TID Bisacodyl [Dulcolax] Med 05/05/19 08:38 Active 10 mg RECTAL DAILY PRN Bisacodyl [Dulcolax] Med 05/05/19 08:38 Active 5 mg PO DAILY PRN Cranberry Med 05/05/19 12:00 Active 500 mg PO TID Cyanocobalamin (Vitamin B12) [Vitamin B12] Med 05/05/19 09:30 Active 1,000 mcg PO DAILY Digoxin [Lanoxin] Med 05/05/19 17:51 Active 250 mcg IVPUSH ONETIME PRN Divalproex Sodium [Depakote ER] Med 05/05/19 20:00 Active 1,500 mg PO BEDTIME Docusate Sodium/Sennosides [Senna Plus] Med 05/05/19 09:30 Active 2 tab PO DAILY Fluconazole [Diflucan] Med 05/05/19 08:45 Active 100 mg PO DAILY Heparin Sodium Med 05/05/19 20:00 Active 5,000 units SUBCUT Q12H Levothyroxine Med 05/05/19 09:30 Active 75 mcg PO ACBREAKFAST Loperamide [Imodium] Med 05/05/19 08:38 Active 2 mg PO ASDIRECTED PRN Magnesium Oxide Med 05/05/19 09:30 Active 400 mg PO DAILY Memantine [Namenda] Med 05/05/19 09:30 Active 10 mg PO BID Metoprolol Tartrate [Lopressor] Med 05/05/19 17:07 Active 5 mg IVPUSH Q4H PRN Miconazole [Desenex 2%] Med 05/05/19 20:00 Active 0 gm TOP BID Nitroglycerin [Nitrostat] Med 05/05/19 08:38 Active 0.4 mg SL Q5M PRN OLANZapine [ZyPREXA] Med 05/05/19 09:30 Active 10 mg PO DAILY Sodium Chloride 0.9% [Normal Saline] 1,000 ml Med 05/05/19 09:00 Active IV ASDIRECTED cefTRIAXone [Rocephin] Med 05/05/19 20:00 Active 1 gm IVPUSH BEDTIME Blood Culture x2 Reflex Set [OM.PC] Stat Oth 05/05/19 01:55 Ordered Code Status [Resuscitation Status] Stat Resus Stat 05/05/19 07:53 Ordered Medication Orders Acetaminophen (Tylenol) 650 mg PO Q4H PRN PRN Reason: Fever Last Admin: 05/05/19 15:58 Dose: 650 mg Hydrocodone Bitart/Acetaminophen ([place] 325-5 Mg) 1 tab PO TID VIDA Last Admin: 05/05/19 19:49 Dose: Not Given Admin: 05/05/19 12:37 Dose: Not Given Bisacodyl (Dulcolax) 5 mg PO DAILY PRN PRN Reason: Constipation Bisacodyl (Dulcolax) 10 mg RECTAL DAILY PRN PRN Reason: Constipation Ceftriaxone Sodium (Rocephin) 1 gm IVPUSH BEDTIME [facility] Last Admin: 05/05/19 19:47 Dose: 1 gm Cranberry (Cranberry) 500 mg PO TID [facility] Last Admin: 05/05/19 19:49 Dose: Not Given Admin: 05/05/19 12:37 Dose: Not Given Cyanocobalamin (Vitamin B12) 1,000 mcg PO DAILY [facility] Last Admin: 05/05/19 09:53 Dose: 1,000 mcg Digoxin (Lanoxin) 250 mcg IVPUSH ONETIME PRN PRN Reason: Tachycardia Last Admin: 05/05/19 18:46 Dose: 250 mcg Divalproex Sodium (Depakote Er) 1,500 mg PO BEDTIME [facility] Last Admin: 05/05/19 19:44 Dose: Not Given Fluconazole (Diflucan) 100 mg PO DAILY [facility] Last Admin: 05/05/19 09:53 Dose: 100 mg Heparin Sodium (Porcine) (Heparin Sodium) 5,000 units SUBCUT Q12H [facility] Last Admin: 05/05/19 19:45 Dose: 5,000 units Sodium Chloride (Normal Saline) 1,000 mls @ 150 mls/hr IV ASDIRECTED [facility] Last Admin: 05/05/19 18:57 Dose: 150 mls/hr Infusion: 05/05/19 18:57 Dose: 150 mls/hr Admin: 05/05/19 13:18 Dose: 150 mls/hr Infusion: 05/05/19 13:18 Dose: 150 mls/hr Admin: 05/05/19 09:52 Dose: 150 mls/hr Levothyroxine Sodium (Levothyroxine) 75 mcg PO ACBREAKFAST [facility] Last Admin: 05/05/19 09:53 Dose: 75 mcg Loperamide HCl (Imodium) 2 mg PO ASDIRECTED PRN PRN Reason: Diarrhea Magnesium Oxide (Magnesium Oxide) 400 mg PO DAILY [facility] Last Admin: 05/05/19 09:53 Dose: 400 mg Memantine (Namenda) 10 mg PO BID [facility] Last Admin: 05/05/19 19:49 Dose: Not Given Admin: 05/05/19 09:53 Dose: 10 mg Metoprolol Tartrate (Lopressor) 5 mg IVPUSH Q4H PRN PRN Reason: Tachycardia Miconazole (Desenex 2%) 0 gm TOP BID [facility] Last Admin: 05/05/19 19:44 Dose: 1 applic Nitroglycerin (Nitrostat) 0.4 mg SL Q5M PRN PRN Reason: Chest Pain Olanzapine (Zyprexa) 10 mg PO DAILY [facility] Last Admin: 05/05/19 09:53 Dose: 10 mg Senna/Docusate Sodium (Senna Plus) 2 tab PO DAILY [facility] Last Admin: 05/05/19 09:53 Dose: 2 tab Assessment/Plan Comment:: Sepsis due to UTI UTI clt pending from clinic Jorge milton with RVR due to acute illness Dementia and Bipolar disorder Hx of HTN now with hypotension Acute renal failure NSTEMI type 2 due to acute illness and fast heart rates Plan: IV lopressor increased from 2.5 to 5 mg every 4 hrs if HR over 140 and BP over 100 otherwise I will give him 1 dose of IV digoxin Hold lisinopril he is still on oral metoprolol but may not even be able to take meds if he doesn't become more alert Telemetry, oxygen, ABX, catheter for strict I and O, and monitor labs Other management per primary attending overall his condition is guarded would not recommend aggressive treatments like cardioversion at this point but could consider further dig or even amiodarone if needed for heart rate control. I feel that tachycardia is compensatory to his acute illness. He is on heparin for DVT prophylaxis I don't feel that full dose anticoagulation is indicated at this point but can be addressed if jorge milton continues after his acute illness. Consider medical management for NSTEMI
[2019-05-06] MEDS: Sodium Chloride 0.9% 1,000 ML IV SCH ×4 (01:38→20:44)
[2019-05-06] MEDS: Acetaminophen 325 MG Tab PO PRN (03:32)
[2019-05-06] MEDS: Levothyroxine 75 MCG Tab PO SCH (06:02)
[2019-05-06 07:47] LABS: ANION GAP 14.4 mmol/L (10-20)
[2019-05-06] MEDS: Fluconazole 100 MG Tab PO SCH (07:51)
[2019-05-06] MEDS: Cranberry 500 MG Cap PO SCH ×3 (07:51→20:40)
[2019-05-06] MEDS: Memantine 10 MG Tab PO SCH ×2 (07:51→20:42)
[2019-05-06] MEDS: Magnesium Oxide 400 MG Tab PO SCH (07:51)
[2019-05-06] MEDS: Acetaminophen/HYDROcodone 325-5 MG Tab PO SCH ×3 (07:52→20:43)
[2019-05-06] MEDS: Cyanocobalamin (Vitamin B12) 1,000 MCG Tab PO SCH (07:52)
[2019-05-06] MEDS: OLANZapine 5 MG Tab PO SCH (07:52)
[2019-05-06] MEDS: Heparin Sodium 5,000 Units/ML Vial SUBCUT SCH ×2 (08:07→20:41)
[2019-05-06] MEDS: Miconazole 2% Top Powder 45 GM Container TOP SCH ×2 (08:07→20:41)
[2019-05-06] MEDS: Digoxin 125 MCG Tab PO SCH (09:38)
[2019-05-06] MEDS: Metoprolol Tartrate 25 MG Tab PO SCH ×2 (09:38→20:42)
--- NOTE | 2019-05-06 10:42 | PN ---
Progress Note for LANDON GREEN Date: 05/06/2019 Room #: VM.203 SUBJECTIVE: The patient had significant tachycardia yesterday that was very resistant to being treated, so he ended up having initial dose of IV Cardizem in ER, then had Lopressor 2.5 mg IV without much response, so then an EKG showed what appeared to be supraventricular tachycardia, so he was given 1 dose of adenosine. However, that really did not work and he seemed to be more into an atrial fib, then Dr. Lorie Mehta was consulted. He was given a dose of digoxin, which did seem to bring his pulse down from the 160s to 130s for a while, but then another dose of digoxin was repeated in the evenings. The patient has had decreased sensorium, which it is unclear if this is his baseline versus if he was more lethargic due to illness. He was not alert enough to take medications last night, so they were held. Also, Andrews catheter was placed as he was having significant retention and with need for accurate I's and Os, and he did have quite a bit urine that did come out initially. OBJECTIVE: Vital Signs: His weight is 112.5 kg, which is up from 109.7 kg from admission. His temperature is 37.7, his pulse is 110, blood pressure is 107/69, respiratory rate is 24, sats are 94% on 1 L. Skin: [place], warm, and dry. He does respond to questions, does talk somewhat muffled, short sentences. Heart: Tachycardic. Lungs: Clear to auscultation. Abdomen: Soft. Genitourinary: Urine is clear yellow. Extremities: His left forearm does not appear to be quite as red, but does still have either a lipoma versus a vascular entity present. LABORATORY DATA: His laboratory work today came back with his white blood cell count 23.8, hemoglobin was 13.3, platelets 120 with 75 segs, 3 bands. Sodium is 146, potassium 4.4, creatinine has gone up to 2.7, GFR is 23. Lactic acid went down to 1.4 from 2.5 yesterday. Magnesium is 1.8. LFTs improved with his AST 122, ALT 83. His troponin is stable at 0.111. His CRP is up to 29.1. ProBNP is 23,794. Urine culture is pending. IMPRESSION: 1. Systemic inflammatory response syndrome. 2. Atrial fibrillation with rapid ventricular rate, improved. 3. Acute kidney injury. 4. Hypomagnesemia. 5. Urinary tract infection. 6. Developmentally delayed. PLAN: The patient will be placed on oral Lopressor. His digoxin level will need to be monitored tomorrow as with his reduced renal function, I do not want to re-dose digoxin today. We will check magnesium level again tomorrow. Dr. Lorie Mehta is the on-call provider, so she will follow over the weekend. GM05/06/2019 08:48:00 MODL: 05/06/2019 10:34:15 /[id number] MTDD
[2019-05-06] MEDS: Divalproex Sodium 500 MG Tab.ER PO SCH (20:40)
[2019-05-06] MEDS: cefTRIAXone 1 GM Vial IVPUSH SCH (20:43)
[2019-05-07] MEDS: Sodium Chloride 0.9% 1,000 ML IV SCH (03:27)
[2019-05-07] MEDS: Levothyroxine 75 MCG Tab PO SCH (06:20)
[2019-05-07 07:58] LABS: ANION GAP 15.6 mmol/L (10-20)
[2019-05-07] MEDS: Cranberry 500 MG Cap PO SCH ×3 (07:59→19:49)
[2019-05-07] MEDS: Magnesium Oxide 400 MG Tab PO SCH (07:59)
[2019-05-07] MEDS: Acetaminophen/HYDROcodone 325-5 MG Tab PO SCH ×3 (07:59→19:49)
[2019-05-07] MEDS: Fluconazole 100 MG Tab PO SCH (08:00)
[2019-05-07] MEDS: Memantine 10 MG Tab PO SCH ×2 (08:00→19:50)
[2019-05-07] MEDS: Digoxin 125 MCG Tab PO SCH (08:00)
[2019-05-07] MEDS: Cyanocobalamin (Vitamin B12) 1,000 MCG Tab PO SCH (08:00)
[2019-05-07] MEDS: Metoprolol Tartrate 25 MG Tab PO SCH ×2 (08:01→19:50)
[2019-05-07] MEDS: Miconazole 2% Top Powder 45 GM Container TOP SCH ×2 (08:02→19:44)
[2019-05-07] MEDS: Heparin Sodium 5,000 Units/ML Vial SUBCUT SCH ×2 (08:02→19:52)
[2019-05-07] MEDS: OLANZapine 5 MG Tab PO SCH (08:02)
[2019-05-07] MEDS: Sodium Chloride 0.45% 1,000 ML IV SCH ×2 (09:13→17:04)
--- NOTE | 2019-05-07 09:37 | PN ---
Progress Note for LANDON GREEN Date: 05/06/2019 Room #: VM.203 SUBJECTIVE: This is hospital day #2 on a 73-year-old admitted with sepsis due to UTI and atrial fibrillation with RVR. Yesterday, he received 2 doses of IV digoxin and 1 dose of IV Lopressor. His heart rates are now below 110, around 100 this morning. Discussed with primary attending, Dr. Bonner, and oral Lopressor was started along with oral digoxin. The patient is slightly more responsive today, he is answering questions. He denies that he is in any pain or having any trouble breathing. OBJECTIVE: Vital Signs: On exam, his temperature was 98.1, his pulse 99, blood pressure 116/58, respiratory rate 14, and O2 of 95% on 1 L. General: He was in no acute distress. Heart: Irregularly irregular. Lungs: Sounds are clear to auscultation bilaterally without crackles or wheezes. Abdomen: Nondistended, nontender. Genitourinary: Andrews in place. Extremities: Warm and dry. No edema. ASSESSMENT: Atrial fibrillation with rapid ventricular response in the setting of acute illness. PLAN: At this point, to schedule metoprolol 25 mg twice daily, can increase the dose if needed if blood pressure is tolerated. His REHAN inhibitor is still on hold to allow for further blood pressure. We will also start the oral digoxin 125 mcg daily. Continue to follow clinically. MKA: 05/07/2019 09:09:48 MODL: 05/07/2019 09:29:04 /[id number]
--- NOTE | 2019-05-07 10:28 | PN ---
Progress Note for LANDON GREEN Date: 05/07/2019 Room #: VM203 SUBJECTIVE: This is hospital day #3 on a 73-year-old admitted with acute sepsis and atrial fibrillation with RVR. The patient's primary source of infection is felt to be a urinary tract infection, but so far, blood cultures are negative and urine cultures are also negative. He did have a slight fever last evening up to 100.4 at 2200, otherwise has been afebrile. He denies any pain this morning. He has not been coughing. He is not short of breath. He has actually been weaned off oxygen. [facility] with a history of bipolar and cognitive impairment. He did have a Andrews catheter placed on admission due to some urinary retention and acute renal failure. Creatinine is just trending down mildly. OBJECTIVE: Vital Signs: He has a temperature of 98.5, pulse 96, blood pressure 104/47, respiratory rate 16, and O2 of 93% on room air. General: He is in no acute distress. He is actually up in the chair. He opens his eyes to command. He answers questions with yes or no. Heart: irregular. Lungs: Lung sounds are clear to auscultation bilaterally without crackles or wheezes. Abdomen: Nondistended and nontender. : Andrews still in place. He has some darker colored urine still, but his abdomen is nondistended and nontender. Extremities: Warm and dry. No edema. Mental Status: He was not able to answer orientation questions. LABORATORY DATA: Lab work did show his white count down to 18.5, hemoglobin 12.6, platelets 128, which are up actually from yesterday. Sodium 148, up from yesterday; potassium 4.6, chloride 116, bicarb 21, BUN 50, creatinine 2.3, and glucose 80. His calcium is 7.8. AST trended down to 87, high of 217. ALT trended down to 77 from a high of 100. Troponin yesterday did trend down to 0.11. Albumin down to 1.8. Digoxin level low at 0.75. ASSESSMENT AND PLAN: 1. Sepsis due to acute illness, which was felt to be a urinary tract infection, although culture negative. Clinically, the patient is improving on IV Rocephin. We will continue with the same. We will plan to treat for at least 5 days with IV antibiotics, but not longer due to the fact his cultures have been negative and no definitive source was found. 2. Hypernatremia. We will switch his fluids over to half-normal saline at 125 an hour and recheck tomorrow. 3. Atrial fibrillation with rapid ventricular response. Rates are improved. He is mostly in the 90s now. We will discontinue telemetry and continue with oral digoxin and Lopressor. 4. Acute renal failure. Creatinine has trended down from 2.5 now to 2.3. We will continue fluids and repeat tomorrow. 5. Severe malnutrition. Albumin down to 1.8. We will encourage p.o. intake. Yesterday, he ate only 25% of his meals. 6. Elevated LFTs, probably acute hepatitis due to sepsis. We will probably repeat in the next day or two, but they are trending down. 7. Mild anemia, probably due to some hemodilution. 8. Mild thrombocytopenia. It has actually improved, probably due to acute illness. He is on heparin for DVT prophylaxis q.12. We will continue with the same. 9. Essential hypertension. His REHAN inhibitor is on hold, especially given his acute renal failure. 10.History of chronic obstructive pulmonary disease and dementia, hypothyroidism, multiple medical comorbidities, which are all being monitored. 11.Gpr-RA-nrtnomuyi myocardial infarction due to acute illness and tachycardia. This is type 2. Given his comorbidities, I would not pursue aggressive managements. We can certainly start the patient on aspirin 81 mg daily, but given acutely elevated liver enzymes, I would avoid statins. The patient is a code level 3. Considerations can be made for palliative care hospice on discharge back to the [facility], which could be as soon as tomorrow. LYNNE: 05/07/2019 09:16:25 MODL: 05/07/2019 09:43:18 /[id number]
[2019-05-07] MEDS: Divalproex Sodium 500 MG Tab.ER PO SCH (19:51)
[2019-05-07] MEDS: cefTRIAXone 1 GM Vial IVPUSH SCH (19:52)
[2019-05-08] MEDS: Sodium Chloride 0.45% 1,000 ML IV SCH ×2 (01:16→09:59)
[2019-05-08] MEDS: Levothyroxine 75 MCG Tab PO SCH (06:23)
[2019-05-08 08:03] LABS: ANION GAP 14.5 mmol/L (10-20)
[2019-05-08] MEDS: Cranberry 500 MG Cap PO SCH ×3 (08:28→19:54)
[2019-05-08] MEDS: Fluconazole 100 MG Tab PO SCH (08:28)
[2019-05-08] MEDS: OLANZapine 5 MG Tab PO SCH (08:29)
[2019-05-08] MEDS: Magnesium Oxide 400 MG Tab PO SCH (08:29)
[2019-05-08] MEDS: Memantine 10 MG Tab PO SCH ×2 (08:29→19:53)
[2019-05-08] MEDS: Aspirin 81 MG Tab.EC PO SCH (08:30)
[2019-05-08] MEDS: Cyanocobalamin (Vitamin B12) 1,000 MCG Tab PO SCH (08:30)
[2019-05-08] MEDS: Acetaminophen/HYDROcodone 325-5 MG Tab PO SCH ×3 (08:31→19:53)
[2019-05-08] MEDS: Metoprolol Tartrate 25 MG Tab PO SCH ×2 (08:32→19:54)
[2019-05-08] MEDS: Digoxin 125 MCG Tab PO SCH (08:33)
[2019-05-08] MEDS: Heparin Sodium 5,000 Units/ML Vial SUBCUT SCH ×2 (08:33→19:52)
[2019-05-08] MEDS: Miconazole 2% Top Powder 45 GM Container TOP SCH ×2 (08:34→19:55)
--- NOTE | 2019-05-08 11:57 | PN ---
Progress Note for LANDON Bell ROCIOArabella Date: 05/08/2019 Room #: VM.203 SUBJECTIVE: This is hospital day #4 on a 73-year-old admitted with severe sepsis and atrial fibrillation with RVR. He has now had controlled heart rates on his metoprolol and Lopressor. His lisinopril has been on hold. He has a history of hypertension. Working diagnosis was a UTI, but culture was negative. No abdominal CT was pursued as he has been afebrile, white count improving. He is still not at his baseline. In fact, he is needing help to eat but is eating over 50% of meals. Normally, he is up [facility]. This morning, he is quite lethargic, did not really answer any of my questions. OBJECTIVE: Vital Signs: His weight is 117.2 kg, pulse 99, blood pressure 143/84, respiratory rate 20, and O2 saturation 93% on room air. General: He is in no acute distress. Heart: Irregularly irregular but rates are much more under control. Lungs: Lung sounds are decreased due to poor respiratory effort currently, but no obvious crackles or wheezes appreciated. Abdomen: Positive bowel sounds. Nontender. Genitourinary: Andrews has been removed. Bladder scans have been 300 or less. He has been incontinent of urine. Extremities: Warm and dry. No edema. Mental Status: He did not awake to answer any orientation questions. LABORATORY DATA: Lab work reviewed did show him to have a white count 14.5, hemoglobin 12.8, platelets 134. Sodium down to 146, potassium 4.5, chloride 113, bicarb 23, BUN 49, creatinine 2.1, glucose 81, calcium 8.1. ASSESSMENT: 1. Severe sepsis due to urinary tract infection, although culture was negative. He is clinically improving. We will give him his last dose of IV Rocephin tonight. 2. Hypernatremia, improved. We will continue the half-normal saline for now, repeat lab work tomorrow. 3. Atrial fibrillation. He has a history of this in the past with non-ST- elevation myocardial infarction. He is now currently rate controlled on digoxin and Lopressor. 4. Acute renal failure. Creatinine has not completely improved. We will continue to hold lisinopril and repeat tomorrow. 5. Essential hypertension. Blood pressure is mildly elevated. We will use the Lopressor and adjust that if needed. 6. Severe malnutrition. We will continue to encourage p.o. intake. 7. LFTs, probably due to hepatitis and sepsis. We will repeat tomorrow. 8. Mild anemia and thrombocytopenia, which all have been stable. We will continue to monitor. 9. History of chronic obstructive pulmonary disease, dementia, hypothyroidism, and multiple medical comorbidities, all stable. 10.Ehn-VS-orjpgxaat myocardial infarction on this admission due to acute illness. The patient was started on aspirin. PLAN: Patient will continue acute cares, potentially be able [facility] with further therapies tomorrow. Addendum later patient IV infiltrated and so Augmentin 875 BID ordered he can get at least a couple doses here and we will push oral fluids and hold off on starting another IV due to potential for discharge in the AM. MKA: 05/08/2019 10:41:15 MODL: 05/08/2019 11:48:10 /[id number] MTDD
[2019-05-08] MEDS: Amoxicillin/Clavulanate K 875-125 MG Tab PO SCH (19:53)
[2019-05-08] MEDS: Divalproex Sodium 500 MG Tab.ER PO SCH (19:53)
[2019-05-08] MEDS: Bisacodyl 5 MG Tab PO PRN (22:32)
[2019-05-09] MEDS: Levothyroxine 75 MCG Tab PO SCH (06:22)
[2019-05-09 07:45] LABS: ANION GAP 12.5 mmol/L (10-20)
[2019-05-09] MEDS: Heparin Sodium 5,000 Units/ML Vial SUBCUT SCH (08:00)
[2019-05-09] MEDS: Metoprolol Tartrate 25 MG Tab PO SCH (08:00)
[2019-05-09] MEDS: Magnesium Oxide 400 MG Tab PO SCH (08:01)
[2019-05-09] MEDS: Cyanocobalamin (Vitamin B12) 1,000 MCG Tab PO SCH (08:01)
[2019-05-09] MEDS: Amoxicillin/Clavulanate K 875-125 MG Tab PO SCH (08:01)
[2019-05-09] MEDS: Aspirin 81 MG Tab.EC PO SCH (08:01)
[2019-05-09] MEDS: Acetaminophen/HYDROcodone 325-5 MG Tab PO SCH (08:01)
[2019-05-09] MEDS: OLANZapine 5 MG Tab PO SCH (08:01)
[2019-05-09] MEDS: Cranberry 500 MG Cap PO SCH (08:01)
[2019-05-09] MEDS: Miconazole 2% Top Powder 45 GM Container TOP SCH (08:02)
[2019-05-09] MEDS: Memantine 10 MG Tab PO SCH (08:02)
[2019-05-09] MEDS: Digoxin 125 MCG Tab PO SCH (08:02)
[2019-05-09] MEDS: Fluconazole 100 MG Tab PO SCH (08:02)
[2019-05-09] MEDS: Bisacodyl 5 MG Tab PO PRN (08:02)
[2019-05-09 08:03] VITALS: BP 124/74
--- NOTE | 2019-05-09 10:34 | PCM.DCSUM1 ---
Discharge Summary - Hospital Course Free Text/Narrative:: Discharge Diagnoses: -Congestive heart failure -Exacerbation of paroxysmal atrial fibrillation, rapid ventricular rate, improved -UTI, treated -Mild intellectual disability -Bipolar disorder -Schizoaffective disorder Secondary Diagnoses: -Hx NSTEMI, 09/12 and this admission because of tachycardia -Impaired fasting glucose -Hypertension, controlled -Dementia -Obesity -Hypothyroidism, stable -COPD Reason for Admission: Found to have fever and rapid heart rate of 160 and came to ER. Admitted for presumed sepsis, atrial fibrillation with rapid ventricular response. Initial Findings: Tachycardia at 160 in ER, slowed to 110 by the time of admission with IV metoprolol. BP 126/75. WBC 23,800, Hb 13.3, macrocytosis of 102, as before. Na+ 146, K+ 4.4. Troponin mildly elevated at 0.14. Corrected Ca++ 9.52, OK. ALT mildly elevated at 43. ProBNP 23,800 (Normal < 450) Treatment and Course in Hospital: He was given IV Rocephin, and Augmentin on the last day because the IV was out, also got Bactrim. These DCd when his urine culture came back negative. He continued to get extra doses of IV metoprolol and his heart rate slowed to 90. BP remained OK at 124/74. He remained afebrile, did not require oxygen, continued to have atrial fibrillation, after discussion with guardian it was decided he is not a candidate for extensive Cardiology Rx because of his dementia and generally deteriorating situation. Condition on Discharge: -Still has elevated BNP but he is comfortable lying down flat, no C/O dyspnea -Heart irregular with atrial fibrillation pattern, rate is good -Abdomen soft and nontender, eating -He answers questions appropriately within the limits of his dementia Discharge Plan: -Should be considered for Hospice or palliative care since no plans for further Cardiac W/U -Antibiotics DCd in light of his negative U/C and being afebrile -Continue metoprolol for heart rate control and CHF -DNR/DNI status as previous Diagnosis: Stroke: No - Discharge Data Discharge Date: 05/09/19 Discharge Disposition: DC/Tfer to SNF 03 Condition: Fair - Patient Summary/Data Consults: Consultations 05/05/19 08:33 PT Evaluation and Treatment [CONS] Routine 05/05/19 12:48 Consult to Physician [CONS] Urgent - Discharge Plan *PRESCRIPTION DRUG MONITORING PROGRAM REVIEWED*: Not Applicable *COPY OF PRESCRIPTION DRUG MONITORING REPORT IN PATIENT SCOTT: Not Applicable Prescriptions/Med Rec: Metoprolol Tartrate [Lopressor] 25 mg PO BID #60 tablet Home Medications: Home Meds Divalproex Sodium [Depakote ER] 1,500 mg PO BEDTIME 09/10/14 [History] Hydrocodone/Acetaminophen [[place] 5-325] 1 tab PO TID 09/10/14 [History] Levothyroxine 75 mcg PO ACBRK 09/10/14 [History] Memantine HCl [Namenda Xr] 28 mg PO DAILY 09/10/14 [History] OLANZapine [ZyPREXA] 10 mg PO DAILY 09/10/14 [History] Nitroglycerin [Nitrostat] 0.4 mg SL Q5M PRN 10/04/14 [History] Lisinopril 5 mg PO DAILY 10/18/17 [History] Cranberry Fruit Concentrate [Cranberry] 425 mg PO TID 10/19/17 [History] Cyanocobalamin (Vitamin B-12) [B-12] 1,000 mcg PO DAILY 10/19/17 [History] Nystatin 1 applic TOP BID 10/19/17 [History] Sennosides/Docusate Sodium [Senna Plus Tablet] 2 tab PO DAILY 12/01/18 [History] Bisacodyl 5 mg PO DAILY PRN 05/05/19 [History] Bisacodyl 10 mg RC DAILY PRN 05/05/19 [History] Loperamide HCl [Imodium A-D] 2 mg PO ASDIRECTED PRN 05/05/19 [History] Sulfamethoxazole/Trimethoprim [Bactrim Ds Tablet] 1 tab PO BID 05/05/19 [History ] Acetaminophen [Tylenol] 650 mg PO Q4H PRN tablet 05/09/19 [Rx] Aspirin [Halfprin] 81 mg PO WITHBREAKFAST tab.ec 05/09/19 [Rx] Metoprolol Tartrate [Lopressor] 25 mg PO BID #60 tablet 05/09/19 [Rx] Forms: ED Department Discharge Referrals: PCP,Unobtain [Primary Care Provider] - - Discharge Summary/Plan Comment DC Time >30 min.: No - Patient Data Vitals - Most Recent: Last Vital Signs Temp 36.6 C 05/09/19 05:12 Pulse 96 05/09/19 08:02 Resp 20 05/09/19 05:12 BP 124/74 05/09/19 08:00 Pulse Ox 95 05/09/19 05:12 Weight - Most Recent: 115.575 kg I&O - Last 24 hours: Intake & Output 05/08/19 05/09/19 05/09/19 22:59 06:59 14:59 Intake Total 385 400 120 Balance 385 400 120 Lab Results - Last 24 hrs: Laboratory Results - last 24 hr 05/09/19 05/09/19 Range/Units 06:50 06:50 WBC 11.1 H (4.0-10.0) x10^3/uL RBC 3.72 L (4.5-6.0) x10^6/uL Hgb 12.5 L (14.0-18.0) g/dL Hct 37.8 L (40.0-52.0) % MCV 101.6 H (78.0-93.0) fL MCH 33.6 H (26.0-32.0) pg MCHC 33.1 (32.0-36.0) g/dL RDW Coeff of January 12.4 (10.0-15.0) % Plt Count 145 (130-400) x10^3/uL Neut % (Auto) 67.7 (50.0-80.0) % Lymph % (Auto) 17.4 L (25.0-50.0) % Floyd % (Auto) 14.1 H (2.0-11.0) % Eos % (Auto) 0.6 (0.0-4.0) % Baso % (Auto) 0.2 (0.2-1.2) % Sodium 145 (136-145) mmol/L Potassium 4.5 (3.5-5.1) mmol/L Chloride 113 H (98-107) mmol/L Carbon Dioxide 24 (21-32) mmol/L Anion Gap 12.5 (10-20) mmol/L BUN 49 H (7-18) mg/dL Creatinine 1.8 H (0.70-1.30) mg/dL Est Cr Clr Drug Dosing 37.77 mL/min Estimated GFR (MDRD) 37 Glucose 86 (74-106) mg/dL Calcium 8.0 L (8.5-10.1) mg/dL Corrected Calcium 9.76 (8.5-10.1) mg/dL Total Bilirubin 0.3 (0.2-1.0) mg/dL AST 57 H (15-37) U/L ALT 60 (16-63) U/L Alkaline Phosphatase 49 (46-116) U/L Total Protein 6.0 L (6.4-8.2) g/dL Albumin 1.8 L (3.4-5.0) g/dL Globulin 4.2 Albumin/Globulin Ratio 0.43 LOGAN Results - Last 24 hrs: Microbiology 05/05/19 02:41 Aerobic Blood Culture - Preliminary Blood - Venous - Lab Draw NO GROWTH AFTER 4 DAYS Anaerobic Blood Culture - Preliminary NO GROWTH AFTER 4 DAYS 05/05/19 02:35 Aerobic Blood Culture - Preliminary Blood - Venous NO GROWTH AFTER 4 DAYS Anaerobic Blood Culture - Final Med Orders - Current: Current Medications Acetaminophen (Tylenol) 650 mg PO Q4H PRN PRN Reason: Fever Last Admin: 05/06/19 03:32 Dose: 650 mg Hydrocodone Bitart/Acetaminophen ([place] 325-5 Mg) 1 tab PO TID [facility] Last Admin: 05/09/19 08:01 Dose: 1 tab Amoxicillin/Clavulanate Potassium (Augmentin 875 Mg/125 Mg) 1 tab PO Q12HR [facility] Last Admin: 05/09/19 08:01 Dose: 1 tab Aspirin (Halfprin) 81 mg PO WITHBREAKFAST [facility] Last Admin: 05/09/19 08:01 Dose: 81 mg Bisacodyl (Dulcolax) 5 mg PO DAILY PRN PRN Reason: Constipation Last Admin: 05/09/19 08:02 Dose: 5 mg Bisacodyl (Dulcolax) 10 mg RECTAL DAILY PRN PRN Reason: Constipation Cranberry (Cranberry) 500 mg PO TID [facility] Last Admin: 05/09/19 08:01 Dose: 500 mg Cyanocobalamin (Vitamin B12) 1,000 mcg PO DAILY [facility] Last Admin: 05/09/19 08:01 Dose: 1,000 mcg Digoxin (Lanoxin) 125 mcg PO DAILY [facility] Last Admin: 05/09/19 08:02 Dose: 125 mcg Divalproex Sodium (Depakote Er) 1,500 mg PO BEDTIME [facility] Last Admin: 05/08/19 19:53 Dose: 1,500 mg Fluconazole (Diflucan) 100 mg PO DAILY [facility] Last Admin: 05/09/19 08:02 Dose: 100 mg Heparin Sodium (Porcine) (Heparin Sodium) 5,000 units SUBCUT Q12H [facility] Last Admin: 05/09/19 08:00 Dose: 5,000 units Levothyroxine Sodium (Levothyroxine) 75 mcg PO ACBREAKFAST [facility] Last Admin: 05/09/19 06:22 Dose: 75 mcg Loperamide HCl (Imodium) 2 mg PO ASDIRECTED PRN PRN Reason: Diarrhea Magnesium Oxide (Magnesium Oxide) 400 mg PO DAILY [facility] Last Admin: 05/09/19 08:01 Dose: 400 mg Memantine (Namenda) 10 mg PO BID [facility] Last Admin: 05/09/19 08:02 Dose: 10 mg Metoprolol Tartrate (Lopressor) 5 mg IVPUSH Q4H PRN PRN Reason: Tachycardia Last Admin: 05/06/19 04:02 Dose: 5 mg Metoprolol Tartrate (Lopressor) 25 mg PO BID [facility] Last Admin: 05/09/19 08:00 Dose: 25 mg Miconazole (Desenex 2%) 0 gm TOP BID [facility] Last Admin: 05/09/19 08:02 Dose: 1 applic Nitroglycerin (Nitrostat) 0.4 mg SL Q5M PRN PRN Reason: Chest Pain Olanzapine (Zyprexa) 10 mg PO DAILY [facility] Last Admin: 05/09/19 08:01 Dose: 10 mg Senna/Docusate Sodium (Senna Plus) 2 tab PO DAILY [facility] Last Admin: 05/09/19 08:01 Dose: 2 tab Discontinued Medications Adenosine (Adenocard) 5 mg IVPUSH NOW ONE Stop: 05/05/19 13:04 Last Admin: 05/05/19 13:13 Dose: 5 mg Ceftriaxone Sodium (Rocephin) 1 gm IVPUSH STAT ONE Stop: 05/05/19 02:11 Last Admin: 05/05/19 02:40 Dose: 1 gm Ceftriaxone Sodium (Rocephin) 1 gm IVPUSH BEDTIME [facility] Last Admin: 05/07/19 19:52 Dose: 1 gm Digoxin (Lanoxin) 250 mcg IVPUSH ONETIME ONE Stop: 05/05/19 17:31 Last Admin: 05/05/19 17:48 Dose: Not Given Digoxin (Lanoxin) 250 mcg IVPUSH ONETIME PRN PRN Reason: Tachycardia Last Admin: 05/05/19 18:46 Dose: 250 mcg Digoxin (Lanoxin) 250 mcg IVPUSH ONETIME ONE Stop: 05/05/19 21:21 Last Admin: 05/05/19 21:40 Dose: 250 mcg Diltiazem HCl (Cardizem) 25 mg IVPUSH ONETIME ONE Stop: 05/05/19 05:13 Last Admin: 05/05/19 05:20 Dose: 25 mg Sodium Chloride (Normal Saline) 1,000 mls @ 1,000 mls/hr IV ONETIME ONE Stop: 05/05/19 02:53 Last Admin: 05/05/19 02:06 Dose: 1,000 mls/hr Sodium Chloride (Normal Saline) 1,000 mls @ 999 mls/hr IV ONETIME ONE Stop: 05/05/19 04:30 Last Admin: 05/05/19 03:30 Dose: 999 mls/hr Sodium Chloride (Normal Saline) 500 mls @ 500 mls/hr IV ONETIME ONE Stop: 05/05/19 09:49 Last Admin: 05/05/19 09:51 Dose: 500 mls/hr Sodium Chloride (Normal Saline) 1,000 mls @ 100 mls/hr IV ASDIRECTED [facility] Last Admin: 05/07/19 03:27 Dose: 150 mls/hr Sodium Chloride (Sodium Chloride 0.45%) 1,000 mls @ 125 mls/hr IV ASDIRECTED [facility] Last Admin: 05/08/19 09:59 Dose: 125 mls/hr Lisinopril (Prinivil) 5 mg PO DAILY [facility] Last Admin: 05/05/19 09:53 Dose: 5 mg Metoprolol Tartrate (Lopressor) 2.5 mg IVPUSH Q4H [facility] Last Admin: 05/05/19 15:51 Dose: 2.5 mg
--- NOTE | 2019-05-09 11:54 | PCM.SN ---
- Free Text/Narrative Note: spoke with Dr. Atkinson this AM patient going back to [facility] we agreed ok to go back off Digoxin but on the lopressor now instead of the lisinopril for HTN. I wouldn't initiate anticoagulation given his comorbidities in fact they are considering palliative care.
== END 2019-05-09 10:00 | DRG 871 ==
LOC: VM.ED 01:22 → VM.MS 07:50
PROVIDERS: ADMIT Family Medicine; ATTEND Family Medicine
DX: A41.9 Sepsis, unspecified organism (principal); E43 Unspecified severe protein-calorie malnutrition; N39.0 Urinary tract infection, site not specified; N17.9 Acute kidney failure, unspecified; B37.0 Candidal stomatitis; E87.0 Hyperosmolality and hypernatremia; R65.20 Severe sepsis without septic shock; Z66 Do not resuscitate; H54.3 Unqualified visual loss, both eyes; I48.0 Paroxysmal atrial fibrillation; J44.9 Chronic obstructive pulmonary disease, unspecified; I25.2 Old myocardial infarction; I10 Essential (primary) hypertension; K21.0 Gastro-esophageal reflux disease with esophagitis; D69.6 Thrombocytopenia, unspecified; D64.9 Anemia, unspecified; E83.42 Hypomagnesemia; R62.50 Unspecified lack of expected normal physiological development in childhood; F70 Mild intellectual disabilities; I50.9 Heart failure, unspecified; I11.0 Hypertensive heart disease with heart failure; E66.01 Morbid (severe) obesity due to excess calories; H54.7 Unspecified visual loss; K21.9 Gastro-esophageal reflux disease without esophagitis; K59.00 Constipation, unspecified; F20.9 Schizophrenia, unspecified; F31.9 Bipolar disorder, unspecified; E86.0 Dehydration; R79.89 Other specified abnormal findings of blood chemistry; Z87.891 Personal history of nicotine dependence; Z90.49 Acquired absence of other specified parts of digestive tract; Z79.899 Other long term (current) drug therapy; N31.9 Neuromuscular dysfunction of bladder, unspecified; Z85.51 Personal history of malignant neoplasm of bladder; Z68.35 Body mass index [BMI] 35.0-35.9, adult; G89.29 Other chronic pain; M54.9 Dorsalgia, unspecified; G30.9 Alzheimer's disease, unspecified; F02.80 Dementia in other diseases classified elsewhere, unspecified severity, without behavioral disturbance, psychotic disturbance, mood disturbance, and anxiety; F10.21 Alcohol dependence, in remission; E03.9 Hypothyroidism, unspecified; E11.9 Type 2 diabetes mellitus without complications; E66.9 Obesity, unspecified; D50.9 Iron deficiency anemia, unspecified
CPT/HCPCS: 36415; 71045; 80053; 81001; 83605; 85025; 87040 ×2; 87086; 93005; 96361; 96374; 96375; 99285; J0696; J3490; J7030 ×2; 51702; 51798; 80048; 80162; 83735; 83880; 84484; 85007; 85027; 86140; 94760; 99284-GF; A9270-GY; J0153; J1160; J1644; J7040